=== PATIENT | male | born 1970 | race African-American/Black ===

== ENCOUNTER 2020-07-18 16:36 | Emergency (ER) | payer OTHER ==
[2020-07-18 17:15] VITALS: BP 137/86; PULSE 83; TEMP 97.8; BMI 34.2
== END 2020-07-18 17:43 | disposition home or self-care (01) ==
LOC: JERFT 16:36
DX: S39.012A Strain of muscle, fascia and tendon of lower back, initial encounter (principal); V87.7XXA Person injured in collision between other specified motor vehicles (traffic), initial encounter
CPT/HCPCS: 99283-25